=== PATIENT | male | born 1995 | race Caucasian/White ===

== ENCOUNTER → 2016-07-14 | Outpatient (CLI) | payer OTHER ==
[2016-07-16 18:38] LABS: IGA SERUM 259 mg/dL (81-463); TIS TRANS IGA 1 U/mL (<4)
== END | disposition home or self-care (01) ==
LOC: C.LAB1850 11:52
PROVIDERS: ATTEND Registered Nurse
DX: R11.2 Nausea with vomiting, unspecified (principal); R10.33 Periumbilical pain

== ENCOUNTER → 2016-07-29 | Outpatient (CLI) | payer OTHER ==
--- NOTE | 2016-07-29 11:03 | DIAGNOSTIC IMAGING REPORT ---
ABDOMINAL ULTRASOUND, RIGHT UPPER QUADRANT HISTORY: Periumbilical pain, nausea and vomiting. COMPARISON: None. FINDINGS: Liver morphology is normal. No hepatic lesions are identified. There is no biliary ductal dilatation. The common bile duct measures 3 mm in caliber. The pancreas is sonographically normal although the head and tail are slightly obscured by overlying bowel gas. There are no gallstones. There is no gallbladder wall thickening. No right hydronephrosis is present. IMPRESSION: No significant abnormality identified within the right upper quadrant. Electronically signed by: Killian Ignacio M.D. 07/29/2016 11:01 AM Dictated Date/Time: 07/29/2016 11:00 AM
== END | disposition home or self-care (01) ==
LOC: C.ULTR 10:20
PROVIDERS: ATTEND Registered Nurse
DX: R11.2 Nausea with vomiting, unspecified (principal); R10.33 Periumbilical pain